=== PATIENT | female | born 1980 | race Native Hawaiian/Other Pacific Islander ===

== ENCOUNTER 2020-12-09 15:40 | Emergency (ER) | payer OTHER ==
[~2020-12-09] VITALS: Ht 175.3 cm; Wt 65.8 kg
[2020-12-09 16:39] VITALS: BP 109/70; TEMP 98.7
== END 2020-12-09 16:44 | disposition home or self-care (01) ==
LOC: ED 15:40
DX: L03.115 Cellulitis of right lower limb (principal)
CPT/HCPCS: 96372; 99283; J0696; J2930

== ENCOUNTER 2021-07-07 14:05 | Emergency (ER) | payer OTHER ==
[~2021-07-07] VITALS: Ht 175.3 cm; Wt 65.8 kg
[2021-07-07 14:20] VITALS: TEMP 97.6
[2021-07-07 15:03] VITALS: BP 112/72
== END 2021-07-07 15:04 | disposition home or self-care (01) ==
LOC: ED 14:05
DX: L73.2 Hidradenitis suppurativa (principal)
CPT/HCPCS: 87070; 87077; 87185; 87186; 87205; 96372; 99283; J0696; J1885